=== PATIENT | female | born 2000 | race Native Hawaiian/Other Pacific Islander ===

== ENCOUNTER 2021-06-24 12:17 | Emergency (ER) | payer OTHER ==
[~2021-06-24] VITALS: Ht 157.5 cm; Wt 136.1 kg
[2021-06-24 12:27] VITALS: BP 118/84; TEMP 98.7
== END 2021-06-24 13:14 | disposition home or self-care (01) ==
LOC: ED 12:17
DX: Z53.21 Procedure and treatment not carried out due to patient leaving prior to being seen by health care provider (principal); R10.32 Left lower quadrant pain; Z3A.09 9 weeks gestation of pregnancy
CPT/HCPCS: 99281

== ENCOUNTER 2023-02-02 16:02 | Emergency (ER) | payer OTHER ==
[~2023-02-02] VITALS: Ht 157.5 cm; Wt 163.3 kg
[2023-02-02 16:06] VITALS: BP 134/93; TEMP 99.3
== END 2023-02-02 16:29 | disposition left against medical advice (07) ==
LOC: ED 16:02
DX: O46.93 Antepartum hemorrhage, unspecified, third trimester (principal); Z3A.29 29 weeks gestation of pregnancy; Z53.29 Procedure and treatment not carried out because of patient's decision for other reasons
CPT/HCPCS: 99284